=== PATIENT | male | born 1980 | race Caucasian/White ===

== ENCOUNTER 2023-07-30 11:39 | Day surgery (SDC) | payer OTHER ==
[~2023-07-30] VITALS: Ht 180.3 cm; Wt 103.4 kg
[2023-07-30] MEDS ORDERED: fentaNYL citrate 0.05 MG/ML VIAL ONE (13:00)
[2023-07-30] MEDS ORDERED: MIDAZOLAM 2 MG/2 ML VIAL ONE (13:01)
[2023-07-30] MEDS: MIDAZOLAM 2 MG/2 ML VIAL IVP ONE (13:08)
== END 2023-07-30 14:18 | disposition home or self-care (01) ==
LOC: MDS 11:39 → MMU 11:40 → MDS 14:18
PROVIDERS: ATTEND Internal Medicine Gastroenterology
DX: R13.10 Dysphagia, unspecified (principal); K21.00 Gastro-esophageal reflux disease with esophagitis, without bleeding; E78.00 Pure hypercholesterolemia, unspecified; J45.909 Unspecified asthma, uncomplicated; Z79.899 Other long term (current) drug therapy; Z98.890 Other specified postprocedural states
CPT/HCPCS: 43235; J2250; J3010